=== PATIENT | male | born 1950 | race Hispanic/Latino ===

== ENCOUNTER 2024-03-16 05:30 | Observation (INO) | payer MEDICARE ==
[2024-03-15 12:11] LABS: BASOPHILS % 0.5 % (0.0-1.0); EOSINOPHILS # (AUTO) 0.1 (0.0-0.4); EOSINOPHILS % 1.7 % (0.0-6.0); HEMATOCRIT 43.7 % (38.2-49.6); HEMOGLOBIN 13.6 g/dL (14.0-18.0); LYMPHOCYTES # (AUTO) 1.7 (1.0-3.2); LYMPHOCYTES % 28.6 % (18.0-39.1); MEAN CORPUSCULAR HEMOGLOBIN 30.1 pg (28-32); MEAN CORPUSCULAR HGB CONC 31.1 g/dL (31-35); MEAN CORPUSCULAR VOLUME 96.7 fL (81-99); MONOCYTES # (AUTO) 0.5 (0.2-0.8); MONOCYTES % 8.7 % (4.4-11.3); NEUTROPHILS # (AUTO) 3.5 (2.1-6.9); NEUTROPHILS % 60.3 % (38.7-80.0); PLATELET COUNT 282 x10e3/uL (140-360); RED BLOOD COUNT 4.52 x10e6/uL (4.3-5.7); RED CELL DISTRIBUTION WIDTH 12.4 % (11.7-14.4); WHITE BLOOD COUNT 5.76 x10e3/uL (4.8-10.8)
[2024-03-15 12:14] LABS: INR 1.03; PROTHROMBIN TIME 14.1 seconds (11.9-14.5)
[2024-03-15 12:15] LABS: PARTIAL THROMBOPLASTIN TIME 31.7 seconds (23.8-35.5)
[2024-03-15 12:21] LABS: ANION GAP 13.3 mmol/L (8-16); CALCIUM 9.3 mg/dL (8.4-10.2); CREATININE, SERUM 0.96 mg/dL (0.72-1.25); POTASSIUM 4.3 mmol/L (3.5-5.1)
[~2024-03-16] VITALS: Ht 165.1 cm; Wt 67.8 kg
[~2024-03-16 05:30] MED LIST: LEVOTHYROXINE88 MCG PO; LOSARTAN PO; METFORMIN HCL500 MG PO; NEXIUM40 MG PO; OMEPRAZOLE40 MG PO; PRAVASTATIN SOD20 MG PO; TRAZODONE HCL50 MG PO; TRICOR48 MG PO
[2024-03-16] MEDS ORDERED: theraflu PO (06:03)
[2024-03-16] MEDS: CEFAZOLIN SODIUM 2 GM ONE (06:06)
[2024-03-16] MEDS: LACTATED RINGER'S 1,000 ML ONE (06:06)
[2024-03-16] MEDS ORDERED: FENTANYL CITRATE/PF 100MCG/2 ML INJ ONE (07:19)
[2024-03-16] MEDS ORDERED: LIDOCAINE HCL 2% LOCAL INJ 5 ML SDV VIAL INJ ONE (07:19)
[2024-03-16] MEDS ORDERED: LIDOCAINE HCL (LTA) 4 ML SOLN ONE (07:19)
[2024-03-16] MEDS ORDERED: ROCURONIUM BROMIDE 1 ML IV ONE (07:19)
[2024-03-16] MEDS ORDERED: ACETAMINOPHEN 1000 MG/100 ML 100 ML IV ONE (07:19)
[2024-03-16] MEDS ORDERED: PROPOFOL IV EMULSION 10 MG/ML 20 ML VIAL ONE (07:19)
[2024-03-16] MEDS ORDERED: KETAMINE 50MG/5ML SYR ONE (07:21)
[2024-03-16] MEDS ORDERED: ONDANSETRON HCL INJ 2MG/ML 2ML 2 MG/ML VIAL ONE (08:11)
[2024-03-16] MEDS ORDERED: DEXAMETHASONE SOD PHOS INJ 4 MG/ML SDV ONE (08:11)
[2024-03-16] MEDS ORDERED: SUGAMMADEX SODIUM 200 MG/2 ML VIAL IV ONE (08:24)
[2024-03-16] MEDS ORDERED: GLYCOPYRROLATE INJ 0.2 MG/ML VIAL ONE (09:23)
[2024-03-16] MEDS ORDERED: HYDROCODON-ACE1 EA12 PO (09:52)
[2024-03-16] MEDS ORDERED: ACETAMINOPHEN 325 MG TAB PO PRN (10:00)
[2024-03-16] MEDS ORDERED: ZOLPIDEM TARTRATE 5 MG TAB PO PRN (10:00)
[2024-03-16] MEDS ORDERED: MAGNESIUM/ALUMINUM/SIMETHICONE 30 ML UDC PO PRN (10:00)
[2024-03-16] MEDS ORDERED: OXYCODONE/ACETAMINOPHEN 5-325 1 EACH TABLET PO PRN (10:00)
[2024-03-16] MEDS ORDERED: MORPHINE SULFATE 5 MG/ML VIAL IM PRN (10:00)
[2024-03-16] MEDS ORDERED: PROMETHAZINE HCL (IM) 25 MG/ML VIAL IM PRN (10:00)
[2024-03-16] MEDS ORDERED: CARISOPRODOL 350 MG TAB PO PRN (10:00)
[2024-03-16 10:50] VITALS: BP 180/77; PULSE 54; RESP 17; TEMP 97.8; O2SAT 95
[2024-03-16 10:53] VITALS: BP 180/77; PULSE 54; RESP 17; TEMP 97.8; O2SAT 95
[2024-03-16] MEDS: LACTATED RINGER'S 1,000 ML IV SCH (11:55)
[2024-03-16 16:00] VITALS: BP 175/102; PULSE 85; RESP 18; TEMP 97.8; O2SAT 97
[2024-03-16 20:00] VITALS: BP 143/85; PULSE 101; RESP 18; TEMP 98.2; O2SAT 94
[2024-03-16 21:00] VITALS: BP 143/85; PULSE 101; RESP 18; TEMP 98.2; O2SAT 94
[2024-03-16] MEDS: TRAZODONE HCL 50 MG TAB PO SCH (21:15)
[2024-03-17] VITALS: BP 142/77; PULSE 87; RESP 18; TEMP 98.8; O2SAT 98
[2024-03-17 04:00] VITALS: BP 155/82; PULSE 71; RESP 18; TEMP 97.7; O2SAT 96
[2024-03-17] MEDS: LEVOTHYROXINE SODIUM 88 MCG TAB PO SCH (06:13)
[2024-03-17 08:00] VITALS: BP 166/74; PULSE 65; RESP 20; TEMP 97.7; O2SAT 98
[2024-03-17] MEDS: HYDROMORPHONE 2MG/ML IV PRN (08:23)
[2024-03-17] MEDS: METFORMIN HCL 500 MG TAB PO SCH (08:27)
[2024-03-17] MEDS: PRAVASTATIN 20 MG TAB PO SCH (08:27)
[2024-03-17] MEDS: PANTOPRAZOLE SOD 40 MG TABEC PO SCH (08:27)
[2024-03-17] MEDS: LOSARTAN POTASSIUM 25 MG TAB PO SCH (08:27)
[2024-03-17] MEDS ORDERED: FENOFIBRATE 134 MG PO SCH (09:00)
[2024-03-17] MEDS: ONDANSETRON HCL INJ 2MG/ML 2ML 2 MG/ML VIAL IV PRN (09:18)
[2024-03-17 11:58] VITALS: BP 178/79; PULSE 58; RESP 20; TEMP 97.6; O2SAT 98
== END 2024-03-17 13:23 | disposition home or self-care (01) ==
LOC: OR 05:30 → PACU V 09:51 → MED/SURG2 10:47
PROVIDERS: ADMIT Neurological Surgery; ATTEND Neurological Surgery
DX: M47.12 Other spondylosis with myelopathy, cervical region (principal); M50.01 Cervical disc disorder with myelopathy, high cervical region; M25.78 Osteophyte, vertebrae; M48.062 Spinal stenosis, lumbar region with neurogenic claudication; R00.1 Bradycardia, unspecified; I10 Essential (primary) hypertension; E78.5 Hyperlipidemia, unspecified; E11.9 Type 2 diabetes mellitus without complications; Z79.84 Long term (current) use of oral hypoglycemic drugs; E03.9 Hypothyroidism, unspecified; R12 Heartburn; Z98.1 Arthrodesis status; Z01.810 Encounter for preprocedural cardiovascular examination; Z01.812 Encounter for preprocedural laboratory examination; Z01.818 Encounter for other preprocedural examination; Z79.899 Other long term (current) drug therapy
CPT/HCPCS: 20931; 22551; 22552; 22845; 36415 ×3; 71046; 72040; 80048; 82948 ×2; 85025; 85610; 85730; 86850; 86900; 88304; 93005; C1713 ×4; C1768; G0378 ×2; J0131; J0690 ×3; J1100; J1170; J2003; J2405 ×2; J2704; J3010; J7121; L8699; S0164; 76000